=== PATIENT | female | born 1965 | race Caucasian/White ===

== ENCOUNTER 2017-09-15 21:57 | Inpatient (IN) | payer SELFPAY ==
[2017-09-15] MEDS ORDERED: Morphine 4 MG/ML VIAL ONE (22:26)
[2017-09-15 23:24] LABS: #Basophils 0.1 thou/uL (0.0-0.2); #Eosinphils 0.2 thou/uL (0.0-0.7); #Lymphocytes 3.2 thou/uL (1.20-3.40); #Monocytes 0.7 thou/uL (0.11-0.59); %Basophils 0.7 % (0.0-1.0); %Eosinophils 1.5 % (0.0-10.0); %Lymphocytes 26.4 % (21.0-51.0); %Monocytes 5.4 % (0.0-10.0); %Neutrophils 66.1 % (42.0-75.0); Mean Corpuscular HGB CONC 33.1 g/dL (32.0-36.0); Mean Corpuscular Hemoglobin 30.9 pg (27.0-31.0); Mean Corpuscular Volume 93.3 fl (81.0-99.0); Platelet Count 345 thou/uL (130-400); RBC Distribution Width 11.8 % (11.5-14.5); Red Blood Cell (RBC) Count 4.21 mill/uL (4.20-5.40); White Blood Cell (WBC) Count 12.1 thou/uL (4.8-10.8)
[2017-09-15 23:29] LABS: INR-International Normal Ratio 1.1; PTT 32.6 SEC (22.9-36.1)
[2017-09-15] MEDS ORDERED: Crotalidae Polyvlnt Antivenin 6 GM in Sodium Chloride 0.9% 250 ML 250 ML IVPB SCH (23:30)
[2017-09-15 23:48] LABS: ALT (SGPT) 14 U/L (8-55); AST (SGOT) 16 U/L (5-34); Albumin 3.9 g/dL (3.5-5.0); Alkaline Phosphatase 72 U/L (40-150); Anion Gap 11 mmol/L (10-20); BUN (Urea Nitrogen) 18 mg/dL (9.8-20.1); Bilirubin, Total 0.4 mg/dL (0.2-1.2); CK (CPK) 86 U/L (29-168); Calc. Creatinine Clearance 0 mL/min (70-130); Calcium 8.5 mg/dL (7.8-10.44); Carbon Dioxide 25 mmol/L (22-29); Chloride 107 mmol/L (98-107); Estimated GFR-MDRD 85; Globulin 2.6 g/dL (2.4-3.5); Glucose 95 mg/dL (70-105); Potassium 3.6 mmol/L (3.5-5.1); Protein, Total 6.5 g/dL (6.0-8.3); Sodium 139 mmol/L (136-145)
[2017-09-16] MEDS ORDERED: Morphine 4 MG/ML VIAL SLOW IVP PRN (00:36)
[2017-09-16] MEDS ORDERED: Ondansetron HCl/PF 4 MG/2 ML Vial IVP PRN (00:37)
[2017-09-16] MEDS ORDERED: Ondansetron ODT 4 MG TAB SL PRN (00:37)
[2017-09-16] MEDS ORDERED: Acetaminophen 325 MG TAB PO PRN (00:37)
[2017-09-16 01:02] VITALS: BMI 31.2
--- NOTE | 2017-09-16 01:25 | PDOC.FPRHP ---
- History of Present Illness Chief Complaint: Snake Bite History of Present Illness: 52 year old with PMH significant for cervical cancer s/p total hysterectomy with bilateral oopherectomy and tobacco abuse history that presents with Copperhead snake bite. She states that she was out doing yardwork around 17:00 pm when she was bitten by a Copperhead snake. She alerted her partner who immediately took her to [place] ED. Labs were performed there which were wnl. She was transferred to [facility] where she received Crofab on admission due to worsening swelling of left lower extremity. Patient initially had some numbness and tingling around the bite site which has since resolved. She does endorse a moderate amount of pain extending from foot to just above the knee on the left lower extremity. The swelling has extended from the foot to the first third of the calf. Patient states she is still able to move her foot and toes and does not have loss of sensation. She denies any bleeding, chest pain, shortness of breath, abdominal pain, headaches, or vision changes. ED Course: Given zofran and Tdap in [place] ED. Given morphine 4 mg and Crofab 6 g in ED. - Allergies/Adverse Reactions Allergies Allergy/AdvReac Type Severity Reaction Status Date / Time No Known Drug Allergies Allergy Verified 09/16/17 05:27 - Home Medications Medication Instructions Recorded Confirmed Type Doxylamine/Phenylep/DM/Aspirin 2 tablet PO Q4HR PRN 09/16/17 09/16/17 History [Joelle Day Night] - History PMHx: Cervical cancer s/p total hysterectomy with bilateral oopherectomy, tobacco abuse hx PSHx: Total hysterectomy with bilateral oopherectomy FHx: Mother with breast cancer Social: 20 pack year smoking history. Quit several years ago. Drinks 3-4 beers per day. Last drink was evening of admission. Denies any illicit drug uses. - Review of Systems General: denies: fever/chills, fatigue Eyes: denies: vision changes ENT: denies: nasal congestion Respiratory: denies: cough, congestion, shortness of breath Cardiovascular: denies: chest pain, palpitation Gastrointestinal: denies: nausea, vomiting, diarrhea, constipation, abdominal pain Genitourinary: denies: dysuria Skin: reports: rashes (redness of left lower extremity and punctate lesions from snake bite) Musculoskeletal: reports: pain (LLE), tenderness, swelling (Left lower extremity from foot to calf). denies: arthritis/arthralgias Neurological: denies: syncope, weakness Psychological: denies: anxiety, depression - Vital signs BP: [119/56] HR: [75] RR: [16] Tmax: [98.7] Pox: [96]% on [RA] Wt: [77.5 kg] - Physical Exam Constitutional: NAD, awake, alert and oriented, well developed HEENT: normocephalic and atraumatic, EOMI, conjunctiva clear, no scleral icterus , grossly normal vision, grossly normal hearing Neck: supple Heart: RRR, no murmurs/rubs/gallops, pulses present (distal pulses intact) Lungs: CTAB, no respiratory distress, good air movement, no wheezing, no retractions Abdomen: soft, non-tender, bowel sounds present, no masses/distention Musculoskeletal: normal structure, other (Tenderness to palpation of left lower extremity. Pain not out of proportion to exam.) Neurological: no focal deficit, normal sensation Skin: good turgor, other (Punctate lesions on left foot from snake bite. Areas of erythema extending from foot to medial mid-thigh. Pallor of left midfoot noted.) Heme/Lymphatic: no unusual bruising or bleeding, no purpura, no petechia Psychiatric: normal mood and affect, good judgment and insight, intact recent and remote memory FMR H&P: Results - Labs Result Diagrams: 09/16/17 07:57 09/15/17 23:13 Lab results: WBC 12.1 thou/uL (4.8-10.8) H 09/15/17 23:13 Hgb 13.0 g/dL (12.0-16.0) 09/15/17 23:13 Hct 39.2 % (36.0-47.0) 09/15/17 23:13 MCV 93.3 fl (81.0-99.0) 09/15/17 23:13 Plt Count 345 thou/uL (130-400) 09/15/17 23:13 Neutrophils % 66.1 % (42.0-75.0) 09/15/17 23:13 Sodium 139 mmol/L (136-145) 09/15/17 23:13 Potassium 3.6 mmol/L (3.5-5.1) 09/15/17 23:13 Chloride 107 mmol/L (98-107) 09/15/17 23:13 Carbon Dioxide 25 mmol/L (22-29) 09/15/17 23:13 BUN 18 mg/dL (9.8-20.1) 09/15/17 23:13 Creatinine 0.72 mg/dL (0.6-1.1) 09/15/17 23:13 Glucose 95 mg/dL (70-105) 09/15/17 23:13 Calcium 8.5 mg/dL (7.8-10.44) 09/15/17 23:13 Total Bilirubin 0.4 mg/dL (0.2-1.2) 09/15/17 23:13 AST 16 U/L (5-34) 09/15/17 23:13 ALT 14 U/L (8-55) 09/15/17 23:13 Alkaline Phosphatase 72 U/L (40-150) 09/15/17 23:13 Creatine Kinase 86 U/L (29-168) 09/15/17 23:13 Serum Total Protein 6.5 g/dL (6.0-8.3) 09/15/17 23:13 Albumin 3.9 g/dL (3.5-5.0) 09/15/17 23:13 FMR H&P: A/P - Problem List (1) Snake bite Current Visit: Yes Status: Acute Code(s): W59.11XA - BITTEN BY NONVENOMOUS SNAKE, INITIAL ENCOUNTER Qualifiers: Encounter type: initial encounter Qualified Code(s): W59.11XA - Bitten by nonvenomous snake, initial encounter (2) Cervical cancer Current Visit: Yes Status: Acute Code(s): C53.9 - MALIGNANT NEOPLASM OF CERVIX UTERI, UNSPECIFIED (3) History of cervical cancer Current Visit: Yes Status: Acute Code(s): Z85.41 - PERSONAL HISTORY OF MALIGNANT NEOPLASM OF CERVIX UTERI - Plan 1. Copperhead snake bite - Incident occurred at 17:00 on 09/15/2017 - Initial labs wnl - 6 gm CroFab given at 00:30 with infusion ending at 01:30 - PT/PTT/INR, platelets and fibrinogen to be drawn 1 hour post infusion; if symptoms controlled, labs within normal limits, and no increase in swelling, then can consider maintenance dose of CroFab at 2 gm q6h x3 doses. Otherwise, give 2 mg over 60 minutes and recheck labs within an hour post-infusion. - Once 3 maintenance doses are complete, can recheck CBC, PT/PTT/INR, and fibrinogen - Monitor patient for 12-18 hours after last dose and repeat PT/PTT/INR, fibrinogen and platelets - Nursing communication to monitor wound q2h - Benadryl 25 mg q6h prn for itching - Morphine 4-8 mg q2h prn for pain control 2. Hx of cervical cancer - s/p total hysterectomy with bilateral oopherectomy Disposition/LOS: Dispo: plan for discharge 12-18 hours after patient has received last CroFab dose, presuming labs are wnl. FMR H&P: Upper Level - Pertinent history 52yo CF with pmhx cervical ca s/p WONG+BSO presents to [facility] after transfer from [place] for snake bite to [facility] at approx 5pm on 09/15/17 while gardening. pt endorses pain and swelling with the bite and extension of swelling over the last few hrs. Cared for initially in ED in [place] and given Tdap vaccine and transferred here for Crofab administration. Pt also endorses modest ETOH use (a few beers per day) with last drink this evening prior to snake bite. Endorses normal sensation of toes, no numbness/tingling. Pain from Left foot to calf and swelling to foot and ankle. - Pertinent findings PE- Gen- NAD, well appearing LLE- 3+ edema to left foot and ankle with sensation intact at toes and plantar aspect of foot. dorsum of foot noted to have slight pallor. edema extends to just above ankle where it improves, ttp to lateral & medial aspect of leg but no anterior vargas or posterior calf pain. minimal erythema. line of discomfort marked from ED. mildly warm to touch. able to move foot/leg and toes. Labs- WNL (important labs noted below) Laboratory Tests 09/15/17 09/15/17 09/15/17 23:13 23:13 23:14 WBC 12.1 H Hgb 13.0 Hct 39.2 Plt Count 345 PT 14.0 INR 1.1 APTT 32.6 Fibrinogen 229 L Creatinine 0.72 Estimated GFR (MDRD) 85 AST 16 ALT 14 - Plan Date/Time: 09/16/17 0124 52yo CF with pmhx cervical ca s/p WONG + BSO p/w-- 1) Moderate crotalid envenomation- pt is s/p 6vials of initial Crofab tx. will check PT/PTT, plt, fibrinogen 1hr after completion of dose and re-examine LLE to determine if initial control obtained. If not obtained, will provide an additional 2vials and recheck 1hr after completion of dose again for control. If pt does obtain control with treatment, will transition to maintenance phase of treatment (2vials q6hr x 3), then recheck labs 12-18hrs after final administration of Crofab. morphine prn and zofran prn. s/p Tdap. I, [Cami Curtis DO ([email or web address])], have evaluated this patient and agree with findings/plan as outlined by buying intern resident. Pertinent changes/additions are listed here. Attending Addendum - Attending Addendum Date/Time: 09/16/17 5514 I personally evaluated the patient and discussed the management with Dr. Kelly. The H&P is repeated by me. I agree with the History, Examination, Assessment and Plan documented above with any addition or exceptions noted below.
[2017-09-16] MEDS ORDERED: diphenhydrAMINE 25 MG CAP PO PRN (01:51)
[2017-09-16 03:13] LABS: Platelet Count 285 thou/uL (130-400)
[2017-09-16 03:26] LABS: INR-International Normal Ratio 1.1; PTT 32.9 SEC (22.9-36.1); Prothrombin Time 14.1 SEC (12.0-14.7)
[2017-09-16] MEDS: Crotalidae Polyvlnt Antivenin 2 GM in Sodium Chloride 0.9% 250 ML 250 ML IVPB SCH ×3 (05:28→17:41)
[2017-09-16] MEDS ORDERED: Crotalidae Polyvlnt Antivenin 2 GM in Sodium Chloride 0.9% 250 ML 250 ML IVPB SCH (06:00)
[2017-09-16 08:05] LABS: Platelet Count 305 thou/uL (130-400)
[2017-09-16 08:15] LABS: PTT 31.8 SEC (22.9-36.1); Prothrombin Time 13.3 SEC (12.0-14.7)
[2017-09-16] MEDS ORDERED: Acetaminophen/Codeine 30-300mg Tablet PO PRN (08:43)
[2017-09-16 18:52] LABS: Platelet Count 260 thou/uL (130-400)
[2017-09-16 19:00] LABS: Prothrombin Time 13.7 SEC (12.0-14.7)
[2017-09-17 05:24] VITALS: TEMP 97.8
--- NOTE | 2017-09-17 07:44 | PDOC.FM ---
- Subjective Subjective: OLLIE overnight, improvement in ROM and swelling and pain per patient. VSS. - Objective MAR Reviewed: Yes Vital Signs & Weight: Vital Signs (12 hours) Temp Pulse Resp BP Pulse Ox 09/17/17 04:40 97.8 F 64 17 98/60 95 09/17/17 00:00 98.1 F 09/16/17 20:05 99.4 F 80 16 129/59 L 97 I&O: 09/16/17 09/17/17 09/18/17 06:59 06:59 06:59 Intake Total 480 2980 Output Total 350 3900 Balance 130 -920 Result Diagrams: 09/16/17 18:44 09/15/17 23:13 <Antonio Echeverria - Last Filed: 09/17/17 07:43> - Objective Vital Signs & Weight: Vital Signs (12 hours) Temp Pulse Resp BP Pulse Ox 09/17/17 08:00 97.8 F 69 16 09/17/17 07:59 97.8 F 69 16 120/55 L 96 09/17/17 04:40 97.8 F 64 17 98/60 95 09/17/17 00:00 98.1 F I&O: 09/16/17 09/17/17 09/18/17 06:59 06:59 06:59 Intake Total 480 2980 Output Total 350 3900 Balance 130 -920 Result Diagrams: 09/16/17 18:44 09/15/17 23:13 <Dwaine Downing - Last Filed: 09/17/17 09:04> Phys Exam - Physical Examination Constitutional: NAD HEENT: PERRLA, moist MMs Respiratory: no wheezing, clear to auscultation bilateral Cardiovascular: RRR, no significant murmur Gastrointestinal: soft, non-tender, no distention Musculoskeletal: no edema, pulses present Improved ROM in toes and ankle right foot Neurological: non-focal, normal sensation, moves all 4 limbs Psychiatric: normal affect, A&O x 3 Deviation from normal: minimal erythema, ecchymosis right foot surrounding puncture sites <Antonio Echeverria - Last Filed: 09/17/17 07:43> Dx/Plan (1) Snake bite Code(s): W59.11XA - BITTEN BY NONVENOMOUS SNAKE, INITIAL ENCOUNTER Status: Acute QualifierTitle: Encounter type: initial encounter Qualified Code(s): W59.11XA - Bitten by nonvenomous snake, initial encounter Plan: S/p administration of Hand [employer]ad Stable vital signs w/ stable coags and platelets No evidence of anaphylaxis Plan for d/c home today <Antonio Echeverria - Last Filed: 09/17/17 07:43> (1) Snake bite Code(s): W59.11XA - BITTEN BY NONVENOMOUS SNAKE, INITIAL ENCOUNTER Status: Acute Qualifiers: Encounter type: initial encounter Qualified Code(s): W59.11XA - Bitten by nonvenomous snake, initial encounter (2) Cervical cancer Code(s): C53.9 - MALIGNANT NEOPLASM OF CERVIX UTERI, UNSPECIFIED Status: Acute (3) History of cervical cancer Code(s): Z85.41 - PERSONAL HISTORY OF MALIGNANT NEOPLASM OF CERVIX UTERI Status: Acute <Dwaine Downing - Last Filed: 09/17/17 09:04> Attending Addendum - Attending Addendum Date/Time: 09/17/17 0903 I personally evaluated the patient and discussed the management with Dr. Lemus. I agree with the History, Examination, Assessment and Plan documented above with any addition or exceptions noted below. patietn doign well and leg substantially improved. Stable fo discharge today when treatment plan complete. <Dwaine Downing - Last Filed: 09/17/17 09:04>
[2017-09-17 08:00] VITALS: BP 120/55
--- NOTE | 2017-09-17 10:56 | DIS-2 ---
DATE OF ADMISSION: 09/16/2017 DATE OF DISCHARGE: 09/17/2017 ADMITTING ATTENDING: Dr. Dwaine Downing DISCHARGE ATTENDING: Dr. Dwaine Downing RESIDENT: Dr. Antonio Echeverria CONSULTATIONS: None. PROCEDURES: None. PRIMARY DIAGNOSES: Crotalidae envenomation secondary to a copperhead bite. SECONDARY DIAGNOSIS: None. DISCHARGE MEDICATIONS: None. DISCONTINUED MEDICATIONS: None. HISTORY OF PRESENT ILLNESS: The patient is a 52-year-old female who presented initially to the ER status post a bite to the lateral aspect of the left foot at approximately 1700 the night of admission. The patient was out working in her lawn which she thought she had a bee sting. However, she did get a look at the snake she identified it as a copperhead. The patient with swelling, bruising and erythema locally around the bite that started progressing up her leg. The patient was seen and evaluated in the ER and started on CroFab. 1 hour status post the initial administration of CroFab the patient had control of symptoms with decreasing erythema and improvement of symptoms. The patient' s vital signs remained stable throughout the entire hospitalization. The patient did not have any symptoms of anaphylaxis. The patient continued through the usual course of 2 vials q.6h. x3. After control was obtained and tolerated this well. On the day of discharge, the patient with minimal erythema which had almost completely resolved locally right around the bite site as well as normal coags and platelets that have been checked periodically throughout her hospitalization. Pain was controlled and the patient with good pulses and full range of motion in her digits in the affected limb. The patient to be discharged home and taking [id number] pain medications as she had not required any during her hospitalization. The patient agreed with plan and plans to follow up with a primary care physician in her home back in [place]. DISPOSITION: Stable. LOCATION: Home DISCHARGE INSTRUCTIONS: Follow up with primary care provider in 7-10 days. ACTIVITY: As tolerated. MTDD
== END 2017-09-17 14:04 | disposition home or self-care (01) | DRG 918 ==
LOC: ERS 21:57 → IMCU/EMU 09-16 00:30 → 2NO 09-16 13:03
PROVIDERS: ADMIT Family Medicine; ATTEND Family Medicine
DX: T63.091A Toxic effect of venom of other snake, accidental (unintentional), initial encounter (principal); Z85.41 Personal history of malignant neoplasm of cervix uteri; Z87.891 Personal history of nicotine dependence; Z90.710 Acquired absence of both cervix and uterus; Z90.722 Acquired absence of ovaries, bilateral; Z90.79 Acquired absence of other genital organ(s); Y92.017 Garden or yard in single-family (private) house as the place of occurrence of the external cause
CPT/HCPCS: 36415; 80053; 82550; 85025; 85049; 85384; 85610; 85730; 86850; 86900; 86901; 93005; 96361; 96365; 96375; A4216; J0840; J2270; J7050